=== PATIENT | female | born 1985 | race Caucasian/White ===

== ENCOUNTER 2020-12-11 21:51 | Emergency (ER) | payer BC ==
[2020-12-11] MEDS ORDERED: CIPROFLOXACIN250 MG PO (22:56)
[2020-12-11] MEDS ORDERED: CIPROFLOX-DEXA7.5 ML AD (22:57)
== END 2020-12-12 01:19 | disposition home or self-care (01) ==
LOC: ED 21:51
DX: H60.92 Unspecified otitis externa, left ear (principal); Z88.2 Allergy status to sulfonamides
CPT/HCPCS: 70487; 84703; 99283-25; Q9967

== ENCOUNTER 2023-12-03 01:27 | Emergency (ER) | payer OTHER ==
[~2023-12-03] VITALS: Ht 167.6 cm; Wt 100.0 kg
[~2023-12-03 01:27] MED LIST: CIPROFLOX-DEXA7.5 ML AD; CIPROFLOXACIN250 MG PO
[2023-12-03] MEDS ORDERED: WEGOVY0.25 MG/0. (01:37)
[2023-12-03 01:40] LABS: BASOPHILS 0.8 % (0-2); EOSINOPHILS 1.7 % (0-6); HEMATOCRIT 40.6 % (35.0-50.0); HEMOGLOBIN 14.2 g/dL (12.0-18.0); LYMPHOCYTES 29.2 % (24-44); MCH 32.4 (27-36); MCV 92.3 fl (81-99); MONOCYTES 5.9 % (0-12); NEUTROPHILS 62.4 % (39-80); PLATELET COUNT 247 K/uL (140-440); RBC 4.39 M/ul (4.3-5.7); RDW 12.8 (10.5-15.0)
[2023-12-03] MEDS ORDERED: METOCLOPRAMIDE HCL 10 MG/2 ML SDV IV ONE (01:45)
[2023-12-03] MEDS ORDERED: LACTATED RINGER'S 1,000 ML IV ONE (01:45)
[2023-12-03 01:59] LABS: ALBUMIN 3.7 g/dL (3.4-5.0); ALBUMIN/GLOBULIN RATIO 0.97 (1.1-2.4); ALKALINE PHOSPHATASE 93 U/L (46-116); ALT (SGPT) 70 U/L (14-59); ANION GAP 13.5 (7-21); AST (SGOT) 23 U/L (15-37); BILIRUBIN, TOTAL 0.5 ng/dL (0.2-1.0); CARBON DIOXIDE 27 mmol/L (21-32); CHLORIDE 103 mmol/L (98-107); GLOMERULAR FILTRATION RATE,EST 65 mL/min (>60); MAGNESIUM 1.9 mg/dL (1.8-2.4); POTASSIUM 3.5 mmol/L (3.5-5.1); PROTEIN, TOTAL 7.5 g/dL (6.4-8.2); UREA NITROGEN 11 mg/dL (7-18)
[2023-12-03] MEDS ORDERED: REGLAN10 MG PO (02:37)
[2023-12-03 02:51] VITALS: BP 125/80
--- NOTE | 2023-12-04 21:15 | EKG ---
[facility] [address] [place], [place] [address] Signed Sinus rhythm with 1st degree AV block Low voltage QRS Borderline ECG No previous ECGs available Confirmed by Amy Montgomery MD () on 12/04/2023 9:15:15 PM Electronically Signed By: AMY MONTGOMERY MD 12/04/232114 PATIENT NAME: LISBETH EDWARDSNEHEMIAHSIMON FROST Electrocardiogram DATE OF : 81 PHYSICIAN: AMY MONTGOMERY MD REPORT #: [id number] REPORT IS CONFIDENTIAL AND NOT TO BE RELEASED WITHOUT AUTHORIZATION
== END 2023-12-03 02:54 | disposition home or self-care (01) ==
LOC: ED 01:27
PROVIDERS: Family Medicine
DX: R10.10 Upper abdominal pain, unspecified (principal); T50.995A Adverse effect of other drugs, medicaments and biological substances, initial encounter; E86.0 Dehydration; Z79.85 Long-term (current) use of injectable non-insulin antidiabetic drugs
CPT/HCPCS: 36415; 74018; 80053; 83735; 84484; 84703; 85025; 93005; 93010; 96361; 96374; 99284-25; J2765; J7121

== ENCOUNTER 2024-06-01 08:42 | Emergency (ER) | payer OTHER ==
[~2024-06-01] VITALS: Ht 167.6 cm; Wt 80.0 kg
[~2024-06-01 08:42] MED LIST changes: +REGLAN10 MG PO; +WEGOVY0.25 MG/0.
[2024-06-01 09:16] LABS: BASOPHILS 0.6 % (0-2); EOSINOPHILS 0.5 % (0-6); HEMATOCRIT 39.8 % (35.0-50.0); HEMOGLOBIN 13.6 g/dL (12.0-18.0); LYMPHOCYTES 13.1 % (24-44); MCH 31.2 (27-36); MCHC 34.3 g/dl (30-36); NEUTROPHILS 80.8 % (39-80); PLATELET COUNT 240 K/uL (140-440); RBC 4.37 M/ul (4.3-5.7); RDW 12.9 (10.5-15.0)
[2024-06-01 09:30] LABS: BILIRUBIN, URINE NEGATIVE (negative); BLOOD/HGB, URINE NEGATIVE (Negative); KETONE, URINE NEGATIVE (Negative); LEUK ESTERASE, URINE TRACE (negative); NITRITE, URINE NEGATIVE (negative)
[2024-06-01 09:37] LABS: ALBUMIN 3.6 g/dL (3.4-5.0); ALBUMIN/GLOBULIN RATIO 0.97 (1.1-2.4); ANION GAP 13.2 (7-21); BILIRUBIN, TOTAL 0.4 mg/dL (0.2-1.0); BUN/CREATININE RATIO 17.58 (6.0-28.6); CREATININE, SERUM 0.91 mg/dL (0.55-1.02); POTASSIUM 4.2 mmol/L (3.5-5.1); PROTEIN, TOTAL 7.3 g/dL (6.4-8.2)
[2024-06-01 09:41] LABS: EPITHELIAL CELLS, URINE SQUAMOUS 1+ /lpf (0-1+); RED BLOOD CELLS, URINE 0-1 /hpf (0-5)
[2024-06-01 09:42] LABS: BACTERIA, URINE NONE SEEN /hpf (negative); CASTS, URINE NONE SEEN \\lpf; COLLECTION TYPE, URINE CLEAN CATCH; CRYSTALS, URINE NONE SEEN (0-1+); REFLEX CULTURE, URINE No (No)
[2024-06-01 10:15] LABS: CORONAVIRUS COVID-19 AG NEGATIVE (NEGATIVE); INFLUENZA A AG NEGATIVE (NEGATIVE); INFLUENZA B AG NEGATIVE (NEGATIVE)
[2024-06-01 11:07] VITALS: BP 136/84
[2024-06-01] MEDS ORDERED: SODIUM CHLORIDE 0.9% 1,000 ML IV PRN (11:15)
--- NOTE | 2024-06-01 14:02 | EKG ---
[facility] [address] [facility] [place] [address] Signed Normal sinus rhythm Normal ECG No previous ECGs available Confirmed by Amy Montgomery MD () on 06/01/2024 2:02:17 PM Electronically Signed By: AMY MONTGOMERY MD 06/01/24 1402 PATIENT NAME: NEHEMIAH DYE SANTOSH Electrocardiogram DATE OF : 81 PHYSICIAN: AMY MONTGOMERY MD REPORT #: [id number] REPORT IS CONFIDENTIAL AND NOT TO BE RELEASED WITHOUT AUTHORIZATION
== END 2024-06-01 11:07 | disposition home or self-care (01) ==
LOC: ED 08:42
PROVIDERS: Emergency Medicine
DX: R55 Syncope and collapse (principal); Z88.2 Allergy status to sulfonamides; Z79.899 Other long term (current) drug therapy
CPT/HCPCS: 36415; 80053; 81001; 83690; 84703; 85025; 93005; 93010; 99284; J7030

== ENCOUNTER 2025-01-01 12:38 | Emergency (ER) | payer OTHER ==
[~2025-01-01] VITALS: Ht 167.6 cm; Wt 102.7 kg
[2025-01-01 12:58] LABS: BLOOD/HGB, URINE SMALL (Negative); KETONE, URINE NEGATIVE (Negative); LEUK ESTERASE, URINE NEGATIVE (negative); NITRITE, URINE NEGATIVE (negative)
[2025-01-01] MEDS ORDERED: KETOROLAC TROMETHAMINE 15 MG/ML VIAL IV ONE (13:00)
[2025-01-01 13:09] LABS: CRYSTALS, URINE NONE SEEN (0-1+); EPITHELIAL CELLS, URINE 0 /lpf (0-1+)
[2025-01-01 13:10] LABS: BACTERIA, URINE NONE SEEN /hpf (negative); CASTS, URINE NONE SEEN \\lpf; REFLEX CULTURE, URINE No (No)
[2025-01-01 13:13] LABS: BASOPHILS 0.8 % (0.1-1.2); EOSINOPHILS 3.0 % (0.7-5.8); LYMPHOCYTES 23.3 % (19.3-51.7); MCH 31.8 PG (25.6-32.2); MCHC 34.6 g/dL (32.2-35.5); MCV 91.9 fL (79.4-94.8); MONOCYTES 10.4 % (4.7-12.5); NEUTROPHILS 62.1 % (34.0-71.1); RBC 4.34 M/uL (3.93-5.22)
[2025-01-01 13:33] LABS: ALT (SGPT) 63.0 U/L (14-59); AST (SGOT) 32.0 U/L (15-37); GLOMERULAR FILTRATION RATE,EST 88.0 mL/min (>60); PROTEIN, TOTAL 7.4 g/dL (6.4-8.2); UREA NITROGEN 8.0 mg/dL (7-18)
[2025-01-01] MEDS ORDERED: TAMSULOSIN HCL 0.4 MG CAP PO ONE (14:15)
[2025-01-01] MEDS ORDERED: TAMSULOSIN HCL0.4 MG PO (15:13)
[2025-01-01 15:26] VITALS: BP 127/99
== END 2025-01-01 15:26 | disposition home or self-care (01) ==
LOC: ED 12:38
PROVIDERS: Emergency Medicine
DX: N23 Unspecified renal colic (principal); Z88.2 Allergy status to sulfonamides; Z91.048 Other nonmedicinal substance allergy status
CPT/HCPCS: 36415; 74176; 80053; 81001; 84703; 85025; 96374; 96375; 99284-25; J1885; J2405